=== PATIENT | female | born 1965 | race Caucasian/White ===

== ENCOUNTER 2018-10-07 16:53 | Emergency (ER) | payer BC ==
[~2018-10-07] VITALS: Ht 157.5 cm; Wt 79.1 kg
[2018-10-07 16:58] VITALS: TEMP 98.3
[2018-10-07 18:58] LABS: BASO # 0.1 (0.0-0.2); BASO % 0.6 % (0.0-2.0); EOS # 0.1 (0.0-0.7); EOS % 1.7 % (0-4.0); GRAN # 4.2 (1.4-6.5); GRAN % 49.7 % (42.2-75.2); HEMATOCRIT 40.5 % (37.0-47.0); HEMOGLOBIN 13.7 g/dl (12.5-16.0); LYMPH # 3.5 (1.2-3.4); MEAN CELL VOLUME 92 fl (80.0-100.0); MEAN CORPUSCULAR HEMOGLOBIN 31 pg (27.0-31.0); MEAN CORPUSCULAR HGB CONC 34 g/dl (33.0-37.0); MEAN PLATELET VOLUME 9.1 fl (7.4-10.4); MONO # 0.5 (0.1-0.6); MONO % 5.8 % (1.7-9.3); PLATELET COUNT 319 K/mm3 (130-400); RED BLOOD COUNT 4.41 M/mm3 (4.10-5.30); REDCELL DISTRIBUTION WIDTH-CV 12.9 % (11.5-14.5)
[2018-10-07 19:12] LABS: ALBUMIN 4.5 gm/dL (3.5-5.0); BILIRUBIN,TOTAL 0.3 mg/dL (0.0-1.0); C-REACTIVE PROTEIN 0.6 mg/dL (0.0-0.9); CALCIUM 9.7 mg/dL (8.4-10.2); CREATININE, serum 0.81 mg/dL (0.52-1.25); TOTAL PROTEIN 7.8 gm/dL (6.4-8.2)
[2018-10-07] MEDS ORDERED: PREDNISONE10 MG PO (20:02)
[2018-10-07] MEDS ORDERED: VALIUM 2MG T2 MG/TAB PO (20:03)
[2018-10-07 20:18] VITALS: BP 158/98; PULSE 60
== END 2018-10-07 20:19 | disposition home or self-care (01) ==
LOC: COL.ER 16:53
PROVIDERS: Family Medicine
DX: M54.2 Cervicalgia (principal); I10 Essential (primary) hypertension
CPT/HCPCS: J1170; J2550

== ENCOUNTER 2018-10-15 16:42 | Emergency (ER) | payer BC ==
[~2018-10-15] VITALS: Ht 157.5 cm; Wt 80.9 kg
[~2018-10-15 16:42] MED LIST: PREDNISONE10 MG PO; VALIUM 2MG T2 MG/TAB PO
[2018-10-15 16:46] VITALS: BP 143/78; TEMP 97.6
[2018-10-15] MEDS ORDERED: FLEXERIL 1010 MG/TAB PO (16:53)
[2018-10-15 17:28] LABS: BASO # 0.1 (0.0-0.2); BASO % 0.4 % (0.0-2.0); EOS % 0.2 % (0-4.0); GRAN # 7.1 (1.4-6.5); GRAN % 61.7 % (42.2-75.2); HEMOGLOBIN 13.5 g/dl (12.5-16.0); LYMPH # 3.7 (1.2-3.4); LYMPH % 32.2 % (20.0-51.0); MEAN CELL VOLUME 93 fl (80.0-100.0); MEAN CORPUSCULAR HEMOGLOBIN 31 pg (27.0-31.0); MEAN CORPUSCULAR HGB CONC 34 g/dl (33.0-37.0); MEAN PLATELET VOLUME 8.6 fl (7.4-10.4); MONO # 0.6 (0.1-0.6); MONO % 5.2 % (1.7-9.3); PLATELET COUNT 392 K/mm3 (130-400); RED BLOOD COUNT 4.31 M/mm3 (4.10-5.30); REDCELL DISTRIBUTION WIDTH-CV 13.3 % (11.5-14.5)
[2018-10-15 17:38] LABS: ALBUMIN 4.2 gm/dL (3.5-5.0); BILIRUBIN,TOTAL 0.2 mg/dL (0.0-1.0); CALCIUM 9.4 mg/dL (8.4-10.2); CREATININE, serum 0.84 mg/dL (0.52-1.25); POTASSIUM 4.6 mmol/L (3.4-5.0); TOTAL PROTEIN 7.3 gm/dL (6.4-8.2)
[2018-10-15] MEDS ORDERED: ROXICODONE 55 MG/TAB PO (17:57)
[2018-10-15 18:00] LABS: PROTHROMBIN TIME 11.3 SECONDS (9.7-12.8)
[2018-10-15 18:22] VITALS: PULSE 67
[2018-10-15] MEDS ORDERED: VALIUM 5MG T5 MG/TAB PO (22:38)
== END 2018-10-15 18:24 | disposition home or self-care (01) ==
LOC: COL.ER 16:42
PROVIDERS: Physician Assistant
DX: M54.2 Cervicalgia (principal); I42.9 Cardiomyopathy, unspecified; Z88.5 Allergy status to narcotic agent; Z98.890 Other specified postprocedural states
CPT/HCPCS: J1885

== ENCOUNTER 2018-10-15 21:16 | Emergency (ER) | payer BC ==
[~2018-10-15] VITALS: Ht 157.5 cm; Wt 80.9 kg
[~2018-10-15 21:16] MED LIST changes: +FLEXERIL 1010 MG/TAB PO; +ROXICODONE 55 MG/TAB PO
[2018-10-15 21:19] VITALS: TEMP 97
[2018-10-15 21:54] LABS: ALBUMIN 4.4 gm/dL (3.5-5.0); BILIRUBIN,TOTAL 0.3 mg/dL (0.0-1.0); CALCIUM 9.8 mg/dL (8.4-10.2); CREATININE, serum 0.91 mg/dL (0.52-1.25); POTASSIUM 4.8 mmol/L (3.4-5.0); TOTAL PROTEIN 7.6 gm/dL (6.4-8.2)
[2018-10-15 22:37] VITALS: BP 175/100; PULSE 70
[2018-10-15] MEDS ORDERED: VALIUM 5MG T5 MG/TAB PO (22:38)
== END 2018-10-15 22:45 | disposition home or self-care (01) ==
LOC: COL.ER 21:16
PROVIDERS: Family Medicine
DX: T39.1X1A Poisoning by 4-Aminophenol derivatives, accidental (unintentional), initial encounter (principal); I42.9 Cardiomyopathy, unspecified; Z98.890 Other specified postprocedural states

== ENCOUNTER → 2022-03-27 | Outpatient (CLI) | payer BC ==
[~2022-03-27] MED LIST changes: +VALIUM 5MG T5 MG/TAB PO
== END ==
LOC: MC.RAD 13:14
DX: Z12.31 Encounter for screening mammogram for malignant neoplasm of breast (principal)

== ENCOUNTER → 2023-12-07 | Outpatient (CLI) | payer BC | LOC: MC.RAD 10:10 | DX: Z12.31 Encounter for screening mammogram for malignant neoplasm of breast (principal) ==